=== PATIENT | female | born 1980 | race Caucasian/White ===

== ENCOUNTER 2020-07-18 05:31 | Inpatient (IN) | payer OTHER ==
[~2020-07-18 05:31] MED LIST: Acetaminophen 500 MG Tab PO ONE; Celecoxib 200 MG Cap PO ONE; Scopolamine 1.5 MG Transdermal Patch TRDERM SCH
[2020-07-18] MEDS ORDERED: fentaNYL 250 MCG/5 ML SDV ONE (05:35)
[2020-07-18] MEDS ORDERED: Dexamethasone 4 MG/ML SDV ONE (05:36)
[2020-07-18] MEDS ORDERED: Midazolam 1 MG/ML 2 ML SDV ONE (05:36)
[2020-07-18] MEDS ORDERED: Ondansetron 4 MG/2 ML SDV ONE (05:36)
[2020-07-18] MEDS ORDERED: Rocuronium 50 MG/5 ML Vial ONE ×2 (05:36→07:43)
[2020-07-18] MEDS ORDERED: Propofol 200 MG/20 ML SDV ONE (05:36)
[2020-07-18] MEDS ORDERED: Succinylcholine 200 MG/10 ML MDV ONE (05:47)
[2020-07-18] MEDS ORDERED: Dextrose 5%-Lactated Ringers 1,000 ML IV SCH (06:00)
[2020-07-18] MEDS ORDERED: cefOXitin 2 GM Vial ONE (06:42)
[2020-07-18] MEDS ORDERED: cefOXitin 2 GM in Sodium Chloride 0.9% 50 ML IV ONE (07:15)
[2020-07-18] MEDS ORDERED: Ketamine 50 MG in Sodium Chloride 0.9% 49.5 ML IV SCH (07:30)
[2020-07-18] MEDS ORDERED: Magnesium Sulfate 6.5 GM in Sodium Chloride 0.9% 250 ML IV ONE (07:30)
[2020-07-18] MEDS ORDERED: Ketamine 500 MG/5 ML MDV IV SCH (07:30)
[2020-07-18] MEDS ORDERED: Glycopyrrolate 0.2 MG/ML 5 ML MDV ONE (07:35)
[2020-07-18] MEDS ORDERED: Phenylephrine 1% 10 MG/ML SDV ONE (07:49)
[2020-07-18] MEDS ORDERED: Sodium Chloride 0.9% 10 ML ONE (07:49)
[2020-07-18] MEDS ORDERED: Neostigmine Methylsulfate 1 MG/ML 5 ML Syringe ONE (08:13)
[2020-07-18] MEDS ORDERED: Sugammadex Sodium 200 MG/2 ML VIAL ONE (09:18)
[2020-07-18] MEDS ORDERED: fentaNYL 100 MCG/2 ML SDV ONE (09:31)
[2020-07-18] MEDS ORDERED: hydrOXYzine HCL 100 MG/2 ML SDV IM ONE (09:45)
[2020-07-18] MEDS ORDERED: Morphine 2 MG/ML SYRINGE IVPUSH ONE (09:52)
[2020-07-18] MEDS ORDERED: LORazepam 2 MG/ML SDV IVPUSH ONE (10:10)
[2020-07-18] MEDS ORDERED: HYDROmorphone 0.5 MG/0.5 ML Syringe IVPUSH PRN (11:00)
[2020-07-18] MEDS: HYDROmorphone 1 MG/ML Syringe IV PRN ×4 (11:11→21:31)
[2020-07-18] MEDS ORDERED: Cyclobenzaprine 10 MG Tab PO PRN (11:40)
[2020-07-18] MEDS ORDERED: Metoclopramide 10 MG/2 ML SDV IVPUSH PRN (12:00)
[2020-07-18] MEDS ORDERED: Labetalol 20 MG/4 ML Syringe IVPUSH PRN (12:00)
[2020-07-18] MEDS ORDERED: diphenhydrAMINE 50 MG/ML SDV IVPUSH PRN (12:00)
[2020-07-18] MEDS ORDERED: hydrOXYzine HCL 100 MG/2 ML SDV IM PRN (12:00)
[2020-07-18] MEDS ORDERED: Acetaminophen 500 MG Tab PO PRN (12:00)
[2020-07-18] MEDS ORDERED: Calcium Gluconate 10% 1 GM/10 ML SDV IVPUSH PRN (12:00)
[2020-07-18] MEDS: oxyCODONE 5 MG Tab PO PRN (12:46)
[2020-07-18] MEDS: Pantoprazole 40 MG Vial IVPUSH SCH (13:02)
[2020-07-18] MEDS: Acetaminophen 500 MG Tab PO SCH ×2 (13:38→21:28)
[2020-07-18] MEDS: FLUoxetine Solution 20 MG/5 ML ML 120 ML Bottle PO SCH (13:44)
[2020-07-18] MEDS: Citalopram 20 MG Tab PO SCH (13:44)
[2020-07-18] MEDS: cefOXitin 2 GM in Sodium Chloride 0.9% 50 ML IV SCH ×2 (13:45→20:18)
[2020-07-18] MEDS: LORazepam 2 MG/ML SDV IVPUSH PRN ×2 (14:17→20:16)
[2020-07-18] MEDS: Heparin Sodium 5,000 Units/ML Vial SUBCUT SCH (16:42)
[2020-07-18] MEDS: MVI, Adult with Vitamin K 10 ML, Thiamine 200 MG, Chromium/Copper/Mang/Selen/Zn 1 ML in... IV SCH ×4 (16:43)
[2020-07-18] MEDS ORDERED: Ondansetron 4 MG/2 ML SDV IVPUSH PRN (16:43)
[2020-07-18] MEDS: Methocarbamol 500 MG Tab PO PRN (17:25)
[2020-07-18] MEDS: Gabapentin 300 MG Cap PO SCH (20:23)
[2020-07-18] MEDS: Dextrose 5%-Lactated Ringers 1,000 ML IV SCH (22:37)
[2020-07-19] MEDS: HYDROmorphone 1 MG/ML Syringe IV PRN ×2 (01:08→03:19)
[2020-07-19] MEDS: cefOXitin 2 GM in Sodium Chloride 0.9% 50 ML IV SCH ×3 (01:09→13:20)
[2020-07-19] MEDS: LORazepam 2 MG/ML SDV IVPUSH PRN ×2 (03:17→22:57)
[2020-07-19] MEDS: Heparin Sodium 5,000 Units/ML Vial SUBCUT SCH ×2 (03:21→16:58)
[2020-07-19] MEDS ORDERED: Iopamidol 510 MG/ML 50 ML SDV PO ONE (04:00)
[2020-07-19] MEDS ORDERED: Iopamidol 612 MG/ML 50 ML SDV PO ONE (04:00)
[2020-07-19] MEDS: Dextrose 5%-Lactated Ringers 1,000 ML IV SCH ×3 (04:34→22:44)
[2020-07-19] MEDS: Acetaminophen 500 MG Tab PO SCH ×3 (06:45→22:34)
[2020-07-19] MEDS: oxyCODONE 5 MG Tab PO PRN ×3 (07:40→19:20)
[2020-07-19] MEDS: Citalopram 20 MG Tab PO SCH (08:12)
[2020-07-19] MEDS: Celecoxib 200 MG Cap PO SCH ×2 (08:12→20:17)
[2020-07-19] MEDS: Propranolol 80 MG Cap.ER PO SCH (08:16)
[2020-07-19] MEDS: FLUoxetine Solution 20 MG/5 ML ML 120 ML Bottle PO SCH (08:16)
[2020-07-19] MEDS ORDERED: SCOPOLAMINE PATCH CHECK TOP SCH (09:00)
[2020-07-19] MEDS: HYDROmorphone 2 MG Tab PO PRN ×2 (11:11→20:15)
[2020-07-19] MEDS: Pantoprazole 40 MG Vial IVPUSH SCH (13:18)
[2020-07-19] MEDS: MVI, Adult with Vitamin K 10 ML, Thiamine 200 MG, Chromium/Copper/Mang/Selen/Zn 1 ML in... IV SCH ×4 (16:57)
[2020-07-19] MEDS: Gabapentin 300 MG Cap PO SCH (20:17)
[2020-07-20] MEDS: oxyCODONE 5 MG Tab PO PRN ×3 (04:19→19:51)
[2020-07-20] MEDS: Heparin Sodium 5,000 Units/ML Vial SUBCUT SCH ×2 (04:21→15:07)
[2020-07-20] MEDS: LORazepam 2 MG/ML SDV IVPUSH PRN (04:26)
[2020-07-20] MEDS: Acetaminophen 500 MG Tab PO SCH ×4 (07:12→21:16)
[2020-07-20] MEDS ORDERED: Magnesium Hydroxide 400 MG/5 ML Susp 30 ML Cup PO SCH (08:30)
[2020-07-20] MEDS: LORazepam 0.5 MG Tab PO PRN ×2 (08:36→19:51)
[2020-07-20] MEDS: Citalopram 20 MG Tab PO SCH (08:42)
[2020-07-20] MEDS: Celecoxib 200 MG Cap PO SCH ×2 (08:42→21:16)
[2020-07-20] MEDS: Propranolol 80 MG Cap.ER PO SCH (08:43)
[2020-07-20] MEDS: FLUoxetine Solution 20 MG/5 ML ML 120 ML Bottle PO SCH (08:44)
[2020-07-20] MEDS ORDERED: Cyanocobalamin (Vitamin B12) 1,000 MCG/ML SDV IM ONE (09:00)
[2020-07-20] MEDS: Ondansetron 4 MG Tab.DIS PO PRN (16:33)
[2020-07-20] MEDS: Methocarbamol 500 MG Tab PO PRN (19:51)
[2020-07-20] MEDS: Gabapentin 300 MG Cap PO SCH (21:16)
[2020-07-21] MEDS: LORazepam 0.5 MG Tab PO PRN ×2 (00:50→04:47)
[2020-07-21] MEDS: oxyCODONE 5 MG Tab PO PRN ×4 (00:50→13:40)
[2020-07-21] MEDS: Heparin Sodium 5,000 Units/ML Vial SUBCUT SCH (04:46)
[2020-07-21] MEDS: Acetaminophen 500 MG Tab PO SCH ×3 (04:48→13:51)
[2020-07-21] MEDS ORDERED: hydrOXYzine HCl 25 MG Tab PO PRN (06:32)
--- NOTE | 2020-07-21 08:29 | DISCH ---
ADMISSION DIAGNOSES: 1. Morbid obesity, body mass index 47.4. 2. Chronic migraine. 3. Cervical paraspinal muscle spasm. 4. Chronic left-sided low back pain. 5. Hepatic steatosis. 6. Major depression disorder, recurrent episode, with anxious distress. 7. Vitamin D deficiency. 8. Elevated TSH. DISCHARGE DIAGNOSES: 1. Laparoscopic Mendez-en-Y gastric bypass surgery. 2. Liver biopsy. 3. Repair of a diaphragmatic hernia. 4. Mediastinal lipoma. POSTOPERATIVE DIAGNOSES: 1. Morbid obesity. 2. Hepatomegaly. 3. Diaphragmatic hernia. 4. Mediastinal lipoma. DATE OF PROCEDURE: 07/18/2020. SURGEON: Oscar Parra MD HISTORY: Ciarra Evans is a pleasant 40-year-old female with a longstanding history of morbid obesity and increasing comorbidities. After preoperative evaluation and discussion of the possible risks and possible complications, she wished to proceed with the surgical procedure. HOSPITAL COURSE: Ciarra had her surgery on 07/18/2020. She had no operative complications. On postoperative day #1, her upper GI was normal. She was started on a step 2 gastric bypass diet with no cereal. On postoperative day 2, she has not had a bowel movement. She was given some bowel stimulation and started on some oral Ativan for anxiety and oxycodone for increased pain. Her oral intake on postoperative day 2 was 2400. Her urine output was 3300. The MIN was removed. She had 130 mL out. She has been consuming 100% of breakfast, lunch, and dinner and has had 1 bowel movement after milk of magnesia. She was able to be discharged to home on 07/21/2020, vital signs stable and pain and anxiety managed with the above medication. She had adequate postop teaching and dietary instructions. PHYSICAL EXAMINATION: GENERAL: Ciarra Evans is a 40-year-old female. VITAL SIGNS: Height 5 feet 5 inches, weight is 285 pounds, and BMI 47.4; TPR 96.8, 72, and 16; and blood pressure 91/52. HEENT: Negative. NECK: Supple. HEART: Regular rate and rhythm. LUNGS: Clear. ABDOMEN: Soft and nontender. The incision is healing well. Sutures are intact. EXTREMITIES: Without peripheral edema. DISPOSITION: Discharged to home. CONDITION: Stable and improving. FOLLOWUP APPOINTMENT: With Heaven Gill PA-C, on 07/29/2020 at 10 a.m. HOME MEDICATIONS: 1. Ativan 0.5 mg p.o. every 4 hours p.r.n. anxiety #20. 2. Oxycodone 5 mg p.o. q.4 hours p.r.n. pain #40. 3. Zofran ODT 4 mg p.o. q.4 hours p.r.n. #30, p.r.n. reason nausea and vomiting. 4. Celebrex 200 mg p.o. b.i.d. 5. Celexa 20 mg p.o. daily. 6. Fluoxetine/Prozac 40 mg p.o. daily. 7. Neurontin 600 mg p.o. at bedtime. 8. Robaxin 500 mg p.o. t.i.d. p.r.n. 9. Inderal LA 80 mg p.o. daily scheduled. 10.Tizanidine 2 to 4 mg p.o. at bedtime. 11.Methocarbamol 500 mg p.o. t.i.d. p.r.n. 12.Rizatriptan 10 mg p.o. p.r.n. migraine headache. 13.Emgality syringe 1 mL subcu every 30 days. 14.Tylenol Extra Strength 1000 mg q.8 hours scheduled for pain and then may decrease to p.r.n. DIET: Step 2 gastric bypass diet with no cereal until 08/02/2020. ACTIVITY: No lifting greater than 10 pounds for 2 weeks. DRIVING: Do not drive for 1 week and within 6 to 8 hours of oxycodone or Ativan. SHOWER/BATHING: May shower. Keep the operative site clean and dry. DISCHARGE INSTRUCTIONS: Wear the abdominal binder for 2 weeks and then as tolerated. Notify the provider if any fever, nausea, or vomiting. Use incentive spirometer 10 times every hour while awake for 1 week and keep track of water and protein intake and bring to the clinic appointment. /[id number]
--- NOTE | 2020-07-21 08:55 | CR ---
[facility] HISTORY: Postbariatric surgery FINDINGS: Patient swallowed water-soluble contrast. Upright views of the abdomen show no evidence of extravasation or obstruction. There is a surgical drain in the left upper quadrant. IMPRESSION: Status post bariatric surgery No extravasation or obstruction seen
[2020-07-21] MEDS ORDERED: FLUoxetine Solution 20 MG/5 ML ML 120 ML Bottle PO SCH (09:00)
[2020-07-21] MEDS: Citalopram 20 MG Tab PO SCH (09:00)
[2020-07-21] MEDS: Celecoxib 200 MG Cap PO SCH (09:00)
[2020-07-21] MEDS: Propranolol 80 MG Cap.ER PO SCH ×2 (09:01→09:08)
[2020-07-21] MEDS: Ondansetron 4 MG Tab.DIS PO PRN (09:26)
--- NOTE | 2020-07-23 11:18 | PN ---
DATE OF SERVICE: 07/20/2020 The patient has been afebrile with stable vital signs. No major problems were noted. looked good at this time. We will work on getting the bowels going today. Otherwise, appeared to be improving, we will keep her for one more day and may be discharged home tomorrow. Oscar Parra MD /[id number]
--- NOTE | 2020-07-23 15:09 | PN ---
DATE OF SERVICE: 07/19/2020 The patient is postop day #1 from a laparoscopic Mendez-en-Y gastric bypass. Currently doing well except a little bit of anxiety, but appeared to be abating. Upper GI x-ray looked good with good flow through and from the small bowel. Will go to a step 2 diet today, switch over to oral Dilaudid for pain as needed and maximize activity and work with pulmonary toilet. Oscar Parra MD /[id number]
--- NOTE | 2020-07-28 08:14 | OR ---
DATE OF PROCEDURE: 07/18/2020 SURGEON: Oscar Parra MD PREOPERATIVE DIAGNOSIS: Morbid obesity. POSTOPERATIVE DIAGNOSES: 1. Morbid obesity. 2. Marked hepatomegaly. 3. Paraesophageal diaphragmatic hernia. 4. Mediastinal lipoma. OPERATIVE PROCEDURES: Diagnostic laparoscopy with: 1. Laparoscopic Mendez-en-Y gastric bypass with long-limb gastroenterostomy (96447). 2. Rigo-Cut needle liver biopsy (56380). 3. Repair of a paraesophageal diaphragmatic hernia (66067). 4. Excision of a mediastinal lipoma (62276). ANESTHESIA: General. QA AUTOMATION ENGINEER: Heaven Gill PA-C INDICATIONS FOR PROCEDURE: This is a 40-year-old female presenting with longstanding morbid obesity and increasingly significant comorbidities. After preoperative evaluation and discussion, she wished to proceed with a gastric bypass procedure. Potential risks, including bleeding, infection, leaks from various GI tract closures, and problems with bowel obstruction over time as well as the possibility of cardiopulmonary, septic, or hemorrhagic complications leading to were discussed, and the patient wishes to proceed. DETAILS OF PROCEDURE: The patient was taken to the operating room and placed in a supine position. After general endotracheal anesthesia was induced, she was converted to a lithotomy position and the abdomen prepped and draped. At 15 cm inferior and 5 cm left of the xiphoid process, a transverse incision was made and the peritoneal cavity entered under direct vision with an Optiview trocar and inflated to 15 mmHg pressure with CO2. The laparoscope was reinserted. No underlying trocar insertion site injuries were seen. Following this, 5 additional trocars were placed across the upper mid abdomen. Bilateral transversus abdominis plane blocks were placed. The liver was examined and noted to be markedly enlarged and fatty infiltrated. Rigo-Cut needle biopsies were obtained from the left lobe of the liver, and minimal bleeding from the biopsy sites was controlled with electrocautery. At this point, the omentum was divided in the midline up to the level of the transverse colon. This allowed identification of the small bowel at the ligament of Treitz. The small bowel was traced out 100 cm distal to that point and was divided transversely with a MARICEL stapler. The small bowel was then traced out an additional 200 cm, where the [id number] enteroenterostomy was accomplished with an internal firing of the Endo MARICEL 60 mm stapler. The common opening was closed transversely with the same stapler, the angles anastomosed, and the mesenteric defect approximated with some 0 Ethibond stitch along with fibrin sealant. The divided end of the Mendez limb was then from the mesentery for a few centimeters, which allowed an antecolic position of the Mendez limb up to the level of the gastroesophageal junction without tension. The liver was retracted anteriorly. The patient was noted to have a moderate-sized paraesophageal hernia with prolapse of some perigastric fat, gastric fundus, and a tongue of omentum into the area anterior to the course of the esophagus. The hernia was reduced and the peritoneum overlying it divided and reflected downward. During the course of the dissection, a mediastinal lipoma was encountered and was excised to facilitate more adequate closure of the crura. The diaphragmatic hernia was then closed with some 0 Ethibond sutures reinforced with PTFE pledgets. The gastrointestinal catheter was then inflated to 15 mL and pulled up snugly against the EG junction. The gastric wall over the apex balloon was then marked with electrocautery and the balloon catheter deflated and pulled up in the esophagus. The lesser omental tissue adjacent to the gastric cardia was then incised, allowing dissection behind the stomach at that level. Pouch formation was initiated with a transverse firing of the MARICEL stapler at the level of the cauterized david on the gastric cardia and completed with some additional firings of MARICEL carmen up to and through the angle of His. Upon completion of pouch formation, both staple lines appeared to be intact. The anvil of a 25 mm EEA stapler was attached to a Alpine sump-type tube. The latter was brought down through the mouth and taken out a small opening in the gastric pouch, allowing the anvil likewise to be pulled down to within the gastric pouch. The divided end of the Mendez limb was then opened, and the main body of the EEA stapler was passed several centimeters into the lumen of the small bowel and brought up the anvil and united with it, thus creating a gastrojejunostomy. Upon removal of the stapler, double donuts of mucosa were noted within it, and the small bowel was closed off with a vascular staple line. The gastrojejunostomy was reinforced with some 3-0 Vicryl seromuscular stitch along with a fibrin sealant. A leak test was accomplished with injection of 120 mL of air in the gastric pouch while it was submerged with a cefoxitin-containing saline solution. No leaks were identified. A single Ramon-Tapia drain was taken out through the left lateral trocar site and positioned adjacent to the gastrojejunostomy and from there up into the splenic fossa. With no further problems noted, the trocars were removed and the peritoneal cavity deflated. The incisions were closed with some 4-0 Vicryl skin stitch, which was also used to fix the drain, and the patient taken to the recovery room in satisfactory condition. Physician therapy assistant Heaven Gill played an essential role in assisting in this case, helping to position the patient and retract structures as needed as well as suturing and cutting sutures when indicated. Her presence improved patient safety and decreased operative time. Oscar Parra MD /[id number]
== END 2020-07-21 15:15 | disposition home or self-care (01) | DRG 620 ==
LOC: JP.MS 05:31 → JP.SDS 05:31 → EDSTATUS 08:45 → JP.MS 09:40
PROVIDERS: ADMIT Surgery; ATTEND Surgery
PROC: 0D164ZA Bypass Stomach to Jejunum, Percutaneous Endoscopic Approach (ICD-10-PCS; principal; 2020-07-18)
PROC: 0FB24ZX Excision of Left Lobe Liver, Percutaneous Endoscopic Approach, Diagnostic (ICD-10-PCS; 2020-07-18)
PROC: 0BQT4ZZ Repair Diaphragm, Percutaneous Endoscopic Approach (ICD-10-PCS; 2020-07-18)
PROC: 0JB63ZZ Excision of Chest Subcutaneous Tissue and Fascia, Percutaneous Approach (ICD-10-PCS; 2020-07-18)
DX: E66.01 Morbid (severe) obesity due to excess calories (principal); F33.9 Major depressive disorder, recurrent, unspecified; G43.909 Migraine, unspecified, not intractable, without status migrainosus; G89.29 Other chronic pain; M54.5 Low back pain; K76.0 Fatty (change of) liver, not elsewhere classified; E55.9 Vitamin D deficiency, unspecified; R16.0 Hepatomegaly, not elsewhere classified; K44.9 Diaphragmatic hernia without obstruction or gangrene; D17.4 Benign lipomatous neoplasm of intrathoracic organs; Z68.42 Body mass index [BMI] 45.0-49.9, adult; Z79.899 Other long term (current) drug therapy; Z90.49 Acquired absence of other specified parts of digestive tract; Z90.710 Acquired absence of both cervix and uterus; Z98.890 Other specified postprocedural states; Z90.89 Acquired absence of other organs; F41.9 Anxiety disorder, unspecified
CPT/HCPCS: 36415; 74240; 74240-26; 81025; 82962; 86850; 86900; 86901; 88304; 88307; 88313; 94762; A9270-GY; C9113; J0171; J0330; J0694; J1100; J1170; J1644; J2060; J2250; J2270; J2370; J2405; J2704; J2710; J2795; J3010; J3410; J3411; J3420; J3475; J3490; J7050; J7121; Q9967